=== PATIENT | female | born 1945 | race Caucasian/White ===

== ENCOUNTER → 2017-05-17 | Outpatient (CLI) | payer OTHER ==
[~2017-05-17] MED LIST: AMBEREN PO; ASPIRIN325 PO; B-COMPLEX-VITA1 EACH PO; BYSTOLIC 5 MG5 M1 PO; CALCIUM 600 +1 EAC1 PO; CALCIUM PO; EFFIENT10 MG PO; LISINOPRIL-HCT1 EAC1 PO; LISINOPRIL10 MG PO; OMEGA-31000 M1 PO; PRAVACHOL20 MG PO; TOPROL XL25 MG PO; UNICOMPLEX M TA1 TA1 PO; ZOCOR40 MG PO
--- NOTE | ~2017-05-17 | 2DMMODE ---
[facility] [address] [place] [address] 2 D/M-MODE ECHOCARDIOGRAM Name: MICHAEL HERNANDEZ Room #: REG [facility] [id number] Admission: 05/17/17 Attend Phys: Antonio Mendez MD Discharge: Date of : 47 Date of Service: 05/17/17 1113 Report #: [id number] THIS REPORT FOR: //name// APPROVED REPORT Study performed: 05/17/2017 10:19:38 EXAM: Comprehensive 2D, Doppler, and color-flow Echocardiogram Patient Location: Out-Patient Room #: Echo lab Status: routine BSA: 1.69 HR: 78 bpm BP: 122/64 mmHg Other Information Study Quality: Good Indications CAD Hypertension/HDD 2D Dimensions RVDd: 28.59 mm LVEF(%): 64.44 (>50%) IVSd: 9.30 (7-11mm) LVOT Diam: 20.77 (18-24mm) LVDd: 43.19 mm PWd: 9.04 (7-11mm) Ascending Ao: 32.16 (22-36mm) LVDs: 28.11 (25-40mm) Aortic Root: 26.67 mm IVC: 12.00 mm Bullock's LVEF: 64.44 % Volumes Left Atrial Volume (Systole) Single Plane 4CH: 28.03 mL Single Plane 2CH: 27.12 mL LA ESV Index: 19.00 mL/m2 Mitral Valve E/A Ratio: 1.2 MV Decel. Time: 166.67 ms MV E Max Antonio.: 1.13 m/s MV A Antonio.: 0.91 m/s MV PHT: 48.33 ms IVRT: 96.89 ms Pulmonary Valve [facility] [address] [place] [address] 2 D/M-MODE ECHOCARDIOGRAM Name: IESHA HERNANDEZN Opal Room #: [facility]#: [id number] Admission: 05/17/17 Attend Phys: Antonio Mendez MD Discharge: Date of : 47 Date of Service: 05/17/17 1113 Report #: [id number] PV Peak Antonio.: 0.82 m/s PV Peak Gr.: 2.70 mmHg Pulmonary Vein P Vein S: 0.84 m/s P Vein A: 0.31 m/s P Vein D: 0.30 m/s P Vein A Dur.: 96.9 msec P Vein S/D Ratio: 2.80 Tricuspid Valve TR Peak Antonio.: 2.61 m/s TR Peak Gr.: 27.27 mmHg PA Pressure: 32.00 mmHg Left Ventricle The left ventricle is normal size. There is normal left ventricular wall thickness. The left ventricular systolic function is normal. The left ventricular ejection fraction is within the normal range. LVEF is 60-65%. Grade II - pseudonormal filling dynamics. Right Ventricle The right ventricle is normal size. The right ventricular systolic function is normal. Atria The left atrium size is normal. The right atrium size is normal. Aortic Valve The aortic valve is normal in structure. No aortic regurgitation is present. There is no aortic valvular stenosis. Mitral Valve The mitral valve is normal in structure. There is no mitral valve regurgitation noted. No evidence of mitral valve stenosis. Tricuspid Valve The tricuspid valve is normal in structure. There is mild tricuspid regurgitation. The right atrial pressure is estimated at mmHg. There is mild pulmonary hypertension. Pulmonic Valve The pulmonary valve is normal in structure. Trace pulmonic regurgitation. Great Vessels The aortic root is normal in size. IVC is normal in size and collapses >50% with inspiration. [facility] [address] [place] [address] 2 D/M-MODE ECHOCARDIOGRAM Name: MICHAEL HERNANDEZ Room #: REG CL [facility]#: [id number] Admission: 05/17/17 Attend Phys: Antonio Mendez MD Discharge: Date of : 47 Date of Service: 05/17/17 1113 Report #: [id number] Pericardium There is no pericardial effusion. <Conclusion> The left ventricle is normal size. The left ventricular systolic function is normal. Grade II - pseudonormal filling dynamics. The right ventricle is normal size. The left atrium size is normal. There is no aortic valvular stenosis. There is no mitral valve regurgitation noted. There is mild tricuspid regurgitation. <ELECTRONICALLY SIGNED> By: Antonio Mendez MD 05/17/17 1113 12 12 Antonio Mendez MD /INF
== END ==
LOC: CV 08:31
DX: I25.10 Atherosclerotic heart disease of native coronary artery without angina pectoris (principal); I10 Essential (primary) hypertension

== ENCOUNTER → 2017-11-19 | Outpatient (CLI) | payer OTHER ==
--- NOTE | ~2017-11-19 | EXE ---
[facility] [employer] [place] [address] STRESS ECHOCARDIOGRAM Name: DAVIDMICHAEL K Room #: REG [facility]#: [id number] Admission: 11/19/17 Attend Phys: Antonio Mendez MD Discharge: Date of : 47 Date of Service: 11/19/17 1023 Report #: [id number] THIS REPORT FOR: //name// APPROVED REPORT Study performed: 11/19/2017 09:11:59 Exam: Stress Echocardiogram Indication: CAD Patient Location: Out-Patient Stress Nurse: Nia Muñoz RN Status: routine Ht: 5 ft 3 in HR: 76 bpm BP: 151/80 mmHg Rhythm: NSR/PVCs Medical History Medical History: CAD s/p stent, HTN, Hyperlipidemia Medications: Listed on worksheet Allergies: Penicillin Procedure The patient underwent an Exercise Stress Test using the Sukhi Protocol. Blood pressure, heart rate, and EKG were monitored. An Echocardiogram was performed by histopathology technician in four stages in quad fashion. At peak stress, four selected images were obtained and placed side by side with resting images for comparison. Stress Test Details Stress Test: Exercise stress testing was performed using a Sukhi protocol. HR Resting HR: 76 bpm Max Heart Rate (APMHR): 149 bpm Max HR Achieved: 164 bpm Target HR (85% APMHR): 126 bpm % of APMHR: 110 Recovery HR: 87 bpm HR response to stress: Normal HR response to stress BP Resting BP: 151/80 mmHg Max BP: 190/85 mmHg Recovery BP: 160/82 mmHg ECG [facility] [address] [place] [address] STRESS ECHOCARDIOGRAM Name: HERNANDEZMICHAEL KING Room #: REG [facility]#: [id number] Admission: 11/19/17 Attend Phys: Antonio Mendez MD Discharge: Date of : 47 Date of Service: 11/19/17 1023 Report #: [id number] Resting ECG: Sinus Rhythm Stress ECG: Sinus Rhythm, NSSTT changes ST Change: Non-ischemic Maximum ST Deviation: 0.5 mm Clinical Reason for Termination: Completed protocol, moderate fatigue Stress Symptoms: Dyspnea Exercise duration: 7 min 1 sec Highest Stage Achieved: Stage 3: 3.4 mph at 14% grade. Exercise capacity: 10.00 METs Pre-Stress Echo The resting Echocardiogram showed normal left ventricular contractility with an estimated Ejection Fraction of about 55-60%. Mild MR, mild TR with an estimated PAP of 32mmHg plus the right atrial pressure. Post-Stress Echo The stress Echocardiogram showed normal left ventricular contractility with an estimated Ejection Fraction of about 60-65%. Normal augmentation of wall motion in all segments on post stress images. Clinical No clinical or ECG evidence for ischemia. Conclusion Clinical Response: Non-ischemic Exercise Capacity: Average Stress ECG Response: Non-ischemic Stress Echo Images: Non-ischemic The left ventricle is normal in size and wall thickness in both the rest and stress images. Other Information Study Quality: Good <Conclusion> The left ventricle is normal in size and wall thickness in both the rest and stress images. <ELECTRONICALLY SIGNED> By: Antonio Mendez MD 11/19/17 1023 1023 1023 Antonio Mendez MD /INF
== END ==
LOC: CV 07:34
DX: I25.10 Atherosclerotic heart disease of native coronary artery without angina pectoris (principal); I10 Essential (primary) hypertension; E78.5 Hyperlipidemia, unspecified

== ENCOUNTER → 2018-04-26 | Outpatient (CLI) | payer OTHER | LOC: RAD 12:04 | DX: Z12.31 Encounter for screening mammogram for malignant neoplasm of breast (principal); E78.00 Pure hypercholesterolemia, unspecified; I10 Essential (primary) hypertension ==

== ENCOUNTER → 2018-05-02 | Outpatient (CLI) | payer OTHER | LOC: CAT 10:22 | DX: K57.30 Diverticulosis of large intestine without perforation or abscess without bleeding (principal); I10 Essential (primary) hypertension; E78.00 Pure hypercholesterolemia, unspecified ==

== ENCOUNTER → 2018-11-25 | Outpatient (CLI) | payer OTHER ==
--- NOTE | 2018-11-25 14:38 | EXE ---
[facility] [place] [place] [address] STRESS ECHOCARDIOGRAM Name: DAVIDMICHAEL K Room #: REG [facility]#: [id number] ������������� Admission: 11/25/18 ������������� Attend Phys: Antonio Mendez MD Discharge: ��� ������������� ��� Date of : 47 Date of Service: 11/25/18 1438 �� Report #: [id number] �������� ��������������������������������������������[id number] THIS REPORT FOR: //name// APPROVED REPORT Study performed: 11/25/2018 13:18:01 Exam: Stress Echocardiogram Indication: CAD Patient Location: Out-Patient Stress Nurse: Andree Oates RN Status: routine Ht: 5 ft 2 in HR: 72 bpm BP: 110/70 mmHg Rhythm: NSR Medical History Medical History: CAD s/p stent Medications: Listed on worksheet Allergies: Listed on worksheet Cardiac Risk Factors: HTN, Hyperlipidemia Procedure The patient underwent an Exercise Stress Test using the Sukhi Protocol. Blood pressure, heart rate, and EKG were monitored. An Echocardiogram was performed by master fire control technician in four stages in quad fashion. At peak stress, four selected images were obtained and placed side by side with resting images for comparison. Stress Test Details Stress Test: Exercise stress testing was performed using a Sukhi protocol. HR Resting HR: 72 bpm Max Heart Rate (APMHR): 148 bpm Max HR Achieved: 166 bpm Target HR (85% APMHR): 125 bpm % of APMHR: 112 Recovery HR: 93 bpm HR response to stress: Normal HR response to stress BP Resting BP: 110/70 mmHg Max BP: 176/60 mmHg Recovery BP: 148/70 mmHg BP response to stress: Normal blood pressure response to [facility] [address] [address] STRESS ECHOCARDIOGRAM Name: MICHAEL HERNANDEZ Room #: REG CL [facility]#: [id number] ������������� Admission: 11/25/18 ������������� Attend Phys: Antonio Mendez MD Discharge: ��� ������������� ��� Date of : 47 Date of Service: 11/25/18 1438 �� Report #: [id number] �������� ��������������������������������������������[id number] stress. ECG Resting ECG: Sinus Rhythm Stress ECG: Sinus Rhythm, nonspecific ST-T abnormalities ST Change: Non-ischemic Clinical Reason for Termination: Completed protocol Stress Symptoms: Dyspnea Exercise duration: 6 min 31 sec Highest Stage Achieved: Stage 3: 3.4 mph at 14% grade. Exercise capacity: 8.5 METs Pre-Stress Echo The resting Echocardiogram showed normal left ventricular contractility with an estimated Ejection Fraction of about 55-60%. Normal wall motion in all segments on baseline images. Post-Stress Echo The stress Echocardiogram showed normal left ventricular contractility with an estimated Ejection Fraction of about 60-65%. Normal augmentation of wall motion in all segments on post stress images. Clinical No clinical or ECG evidence for ischemia. Conclusion Clinical Response: Non-ischemic Exercise Capacity: Average Stress ECG Response: Non-ischemic Stress Echo Images: Non-ischemic The left ventricle is normal in size and wall thickness in both the rest and stress images. Other Information Study Quality: Adequate <Conclusion> The left ventricle is normal in size and wall thickness in both the rest and stress images. ��������������������������������������������� <ELECTRONICALLY SIGNED> ���������������������������������������� By: Antonio Mendez MD ��������������������������������������������� 11/25/18 1438 1438 1438 Antonio Mendez MD /INF
== END ==
LOC: CV 06:18
DX: I25.10 Atherosclerotic heart disease of native coronary artery without angina pectoris (principal); I10 Essential (primary) hypertension; E78.5 Hyperlipidemia, unspecified; Z95.5 Presence of coronary angioplasty implant and graft; Z88.5 Allergy status to narcotic agent; Z88.0 Allergy status to penicillin; Z88.8 Allergy status to other drugs, medicaments and biological substances

== ENCOUNTER → 2019-05-07 | Outpatient (CLI) | payer OTHER | LOC: RAD 02:20 | DX: Z12.31 Encounter for screening mammogram for malignant neoplasm of breast (principal) ==

== ENCOUNTER → 2019-11-27 | Outpatient (CLI) | payer OTHER | LOC: SJCVC 11:13 | DX: I25.812 Atherosclerosis of bypass graft of coronary artery of transplanted heart without angina pectoris (principal); I10 Essential (primary) hypertension; E78.00 Pure hypercholesterolemia, unspecified; R60.9 Edema, unspecified; Z79.899 Other long term (current) drug therapy; Z82.49 Family history of ischemic heart disease and other diseases of the circulatory system; Z87.891 Personal history of nicotine dependence ==

== ENCOUNTER → 2020-05-19 | Outpatient (CLI) | payer OTHER | LOC: BC 10:42 | PROVIDERS: ATTEND Family Medicine | DX: Z12.31 Encounter for screening mammogram for malignant neoplasm of breast (principal) ==

== ENCOUNTER → 2020-08-03 | Outpatient (CLI) | payer OTHER | LOC: SJCVCIMAG 07-07 07:38 | PROVIDERS: ATTEND Internal Medicine Cardiovascular Disease | DX: I25.812 Atherosclerosis of bypass graft of coronary artery of transplanted heart without angina pectoris (principal); I10 Essential (primary) hypertension; E78.00 Pure hypercholesterolemia, unspecified; R60.9 Edema, unspecified; I42.9 Cardiomyopathy, unspecified; Z79.82 Long term (current) use of aspirin; Z79.899 Other long term (current) drug therapy; Z87.891 Personal history of nicotine dependence ==

== ENCOUNTER → 2021-01-17 | Outpatient (CLI) | payer OTHER | LOC: SJCVCIMAG 07:46 | PROVIDERS: ATTEND Internal Medicine Cardiovascular Disease | DX: I49.3 Ventricular premature depolarization (principal); I25.10 Atherosclerotic heart disease of native coronary artery without angina pectoris; I10 Essential (primary) hypertension; E78.00 Pure hypercholesterolemia, unspecified; R60.9 Edema, unspecified; E78.5 Hyperlipidemia, unspecified; Z79.82 Long term (current) use of aspirin; Z79.899 Other long term (current) drug therapy; Z87.891 Personal history of nicotine dependence; Z72.89 Other problems related to lifestyle; Z98.61 Coronary angioplasty status; Z88.5 Allergy status to narcotic agent; Z88.1 Allergy status to other antibiotic agents; Z88.0 Allergy status to penicillin ==

== ENCOUNTER → 2021-03-07 | Outpatient (CLI) | payer OTHER | LOC: SJCVC 12:44 | PROVIDERS: ATTEND Internal Medicine Cardiovascular Disease | DX: I48.0 Paroxysmal atrial fibrillation (principal); I25.10 Atherosclerotic heart disease of native coronary artery without angina pectoris; I10 Essential (primary) hypertension; E78.00 Pure hypercholesterolemia, unspecified; R60.9 Edema, unspecified; I42.9 Cardiomyopathy, unspecified; Z98.890 Other specified postprocedural states; Z95.5 Presence of coronary angioplasty implant and graft; Z88.0 Allergy status to penicillin; Z88.5 Allergy status to narcotic agent; Z88.8 Allergy status to other drugs, medicaments and biological substances; Z79.82 Long term (current) use of aspirin; Z79.899 Other long term (current) drug therapy; Z87.891 Personal history of nicotine dependence; Z82.49 Family history of ischemic heart disease and other diseases of the circulatory system ==

== ENCOUNTER → 2021-04-20 | Outpatient (CLI) | payer OTHER | LOC: SJCVCIMAG 07:22 | PROVIDERS: ATTEND Internal Medicine Cardiovascular Disease | DX: I08.1 Rheumatic disorders of both mitral and tricuspid valves (principal); I48.0 Paroxysmal atrial fibrillation; I25.812 Atherosclerosis of bypass graft of coronary artery of transplanted heart without angina pectoris; I10 Essential (primary) hypertension; E78.00 Pure hypercholesterolemia, unspecified; Z79.899 Other long term (current) drug therapy; Z88.0 Allergy status to penicillin; Z88.8 Allergy status to other drugs, medicaments and biological substances; Z88.5 Allergy status to narcotic agent; Z72.89 Other problems related to lifestyle; Z87.891 Personal history of nicotine dependence ==

== ENCOUNTER → 2021-05-19 | Outpatient (CLI) | payer OTHER | LOC: RAD 09:16 → PAIN 13:28 | PROVIDERS: ATTEND Family Medicine | DX: Z12.31 Encounter for screening mammogram for malignant neoplasm of breast (principal) ==

== ENCOUNTER → 2021-05-25 | Outpatient (CLI) | payer OTHER | LOC: SJCVC 14:41 | PROVIDERS: ATTEND Internal Medicine Cardiovascular Disease | DX: I48.0 Paroxysmal atrial fibrillation (principal); I10 Essential (primary) hypertension; I25.10 Atherosclerotic heart disease of native coronary artery without angina pectoris; E78.5 Hyperlipidemia, unspecified; E78.00 Pure hypercholesterolemia, unspecified; Z88.0 Allergy status to penicillin; Z88.8 Allergy status to other drugs, medicaments and biological substances; Z79.82 Long term (current) use of aspirin; Z79.899 Other long term (current) drug therapy; Z82.49 Family history of ischemic heart disease and other diseases of the circulatory system; Z87.891 Personal history of nicotine dependence; Z72.89 Other problems related to lifestyle ==